=== PATIENT | male | born 1950 | race Caucasian/White ===

== ENCOUNTER 2022-12-10 08:13 | Day surgery (SDC) | payer OTHER ==
[~2022-12-10] VITALS: Ht 172.7 cm; Wt 81.6 kg
[2022-12-10] MEDS ORDERED: MIDAZOLAM HCL 5 MG/5 ML VIAL ONE (09:23)
[2022-12-10] MEDS ORDERED: fentaNYL CITRATE/PF 100 MCG/2 ML AMP ONE (09:23)
[2022-12-10 13:14] VITALS: O2SAT 97
[2022-12-10 15:33] VITALS: BP_SYST 162; PULSE 122; RESP 18
== END 2022-12-10 11:15 | disposition home or self-care (01) ==
LOC: SDS 08:13
PROVIDERS: ATTEND Internal Medicine
DX: I13.0 Hypertensive heart and chronic kidney disease with heart failure and stage 1 through stage 4 chronic kidney disease, or unspecified chronic kidney disease (principal); D63.1 Anemia in chronic kidney disease; D12.4 Benign neoplasm of descending colon; K29.50 Unspecified chronic gastritis without bleeding; B96.81 Helicobacter pylori [H. pylori] as the cause of diseases classified elsewhere; K57.30 Diverticulosis of large intestine without perforation or abscess without bleeding; K64.8 Other hemorrhoids; N18.9 Chronic kidney disease, unspecified; I25.10 Atherosclerotic heart disease of native coronary artery without angina pectoris; I48.91 Unspecified atrial fibrillation; E78.5 Hyperlipidemia, unspecified; Z88.1 Allergy status to other antibiotic agents; Z88.2 Allergy status to sulfonamides; Z79.01 Long term (current) use of anticoagulants; Z95.5 Presence of coronary angioplasty implant and graft; Z79.899 Other long term (current) drug therapy
CPT/HCPCS: 45385; 43239; 87081; 36415; 88305; 88312; 88313; 99153; 99152; G0378; J2250; J3010